=== PATIENT | male | born 1995 | race Caucasian/White ===

== ENCOUNTER 2017-03-16 23:51 | Emergency (ER) | payer OTHER ==
[2017-03-17 00:02] VITALS: BP 142/89
[2017-03-17] MEDS ORDERED: Erythromycin Base 0.5% Ophth Oint 1 GM Tube EYELF ONE (00:14)
--- NOTE | 2017-03-17 00:21 | EDM.PDOC ---
ED HPI GENERAL MEDICAL PROBLEM - General Chief Complaint: Eye Problems Stated Complaint: POSS LEFT EYE INJURY Time Seen by Provider: 03/16/17 23:53 Source of Information: Reports: Patient History Limitations: Reports: No Limitations - History of Present Illness INITIAL COMMENTS - FREE TEXT/NARRATIVE: This is a 21-year-old male. 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 He has tried to wash out that left eye but he still feels like there is something in it. He also complains of some right eye irritation as well. He has not been around any body that was welding today and he was wearing safety glasses during most of the day. He denies any other acute symptoms. He states his vision is grossly normal and just tears in his eyes sometimes gives him some blurry vision Left Eye Pain Score (Numeric/FACES): 8 - Related Data Allergies Allergy/AdvReac Type Severity Reaction Status Date / Time No Known Allergies Allergy Verified 03/17/17 00:02 Home Meds: Home Meds . [No Known Home Meds] 03/17/17 [History] Past Medical History - Past Health History Medical/Surgical History: Denies Medical/Surgical History Social & Family History - Family History Family Medical History: Noncontributory - Tobacco Use Smoking Status *Q: Never Smoker ED ROS GENERAL - Review of Systems Review Of Systems: See Below Constitutional: Reports: No Symptoms HEENT: Reports: Other (As per history of present illness) Respiratory: Reports: No Symptoms Cardiovascular: Reports: No Symptoms Endocrine: Reports: No Symptoms GI/Abdominal: Reports: No Symptoms : Reports: No Symptoms Musculoskeletal: Reports: No Symptoms Skin: Reports: No Symptoms Neurological: Reports: No Symptoms Psychiatric: Reports: No Symptoms Hematologic/Lymphatic: Reports: No Symptoms ED EXAM GENERAL W FULL EYE - Physical Exam Exam: See Below Exam Limited By: No Limitations General Appearance: Alert, WD/WN, No Apparent Distress Eye Exam: Left Eye: Corneal Abrasion (Centralized small corneal abrasion noted) , Bilateral Eye: Conjunctival Injection (Both eyes have conjunctival irritation) , Other (Proparacaine was placed in both eyes on both eyes the upper and lower lids were everted and no foreign bodies were seen, floursecine stain was placed in both eyes, the left eye shows a centralized small corneal abrasion, the right I did not show a corneal abrasion but just conjunctival irritation) Visual Acuity (R) 20/: 40 (Visual acuity from both eyes was about 20/30) Visual Acuity (L) 20/: 40 With Correction: No Eyelids: Bilateral: Lid Everted for Exam Conjunctiva & Sclera: Bilateral: Injected Cornea Exam: Left: Corneal Abrasion Extraocular Movements: Bilateral: Intact Pupils: Normal Accommodation Pupillary Size: Bilateral: 2 mm Pupillary Reaction: Bilateral: Brisk Anterior Chamber: Bilateral: Normal Appearance Ears: Normal External Exam Nose: Normal Inspection Throat/Mouth: Normal Inspection Head: Normocephalic Neck: Supple Respiratory/Chest: No Respiratory Distress Back Exam: Full Range of Motion Extremities: Normal Inspection, Normal Range of Motion Neurological: Alert, Oriented Psychiatric: Normal Affect, Normal Mood Skin Exam: Warm, Dry Course - Vital Signs Last Recorded V/S: Last Vital Signs Temp 97.5 F 03/17/17 00:00 Pulse 80 03/17/17 00:00 Resp 18 03/17/17 00:00 BP 142/89 H 03/17/17 00:00 Pulse Ox 100 03/17/17 00:00 - Orders/Labs/Meds Orders: Active Orders 24 hr Category Date Time Status Communication Order [RC] STAT Care 03/17/17 00:13 Ordered Erythromycin Base [Erythromycin 0.5% Ophth Oint] Med 03/17/17 00:14 Once 1 gm EYELF ONETIME ONE Departure - Departure Time of Disposition: 00:22 Disposition: Home, Self-Care 01 Condition: good Clinical Impression: Corneal abrasion Qualifiers: Encounter type: initial encounter Laterality: left Qualified Code(s): S05.02XA - Injury of conjunctiva and corneal abrasion without foreign body, left eye, initial encounter Inflammation of conjunctiva Qualifiers: Conjunctivitis type: acute Acute conjunctivitis type: unspecified Laterality: bilateral Qualified Code(s): H10.33 - Unspecified acute conjunctivitis, bilateral - Discharge Information Forms: ED Department Discharge Additional Instructions: Wear the left eye patch until the morning and then you may take it off but do not rub your left eye, as soon as the pharmacy is open in the morning get some artificial tears, and use them in both your eyes one drop every hour or 2 to keep them well lubricated and feeling better, do not rub your left eye since it will make the abrasion worse and 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
== END 2017-03-17 00:32 | disposition home or self-care (01) ==
LOC: JD.ED 23:51
DX: S05.02XA Injury of conjunctiva and corneal abrasion without foreign body, left eye, initial encounter (principal); H10.33 Unspecified acute conjunctivitis, bilateral; W89.0XXA Exposure to welding light (arc), initial encounter
CPT/HCPCS: 99283; A9270